=== PATIENT | male | born 1965 | race Caucasian/White ===

== ENCOUNTER 2020-03-21 10:16 | Outpatient (CLI) | payer BC, SELFPAY ==
--- NOTE | ~2020-03-21 | CT_ITS ---
EXAMINATION: CT cervical spine wo con DATE: 03/21/2020 11:17 INDICATION: Left neck pain. TECHNIQUE: Computed tomography (CT) of the cervical spine was performed without intravenous contrast. Automated exposure control and iterative reconstruction technique were employed. The dose-length pro duct was 385.93 mGy-cm. COMPARISON: None FINDINGS: There is mild emphysema. Bone alignment is normal. Vertebral body heights are normal. There are changes of posterior fusion procedure from C2 to T1 with lateral mass screws from C2-C6 and pedi moe screws in T1 and T2. There are bridging endplate osteophytes from C2 to T3. There is an old fract ure of C6 superior endplate anteriorly. Disc heights are normal. There are changes of laminectomies a t C5 and C6. The following disc levels are specifically discussed: C2-C3: There is no uncovertebral joint hypertrophy. There is no facet joint hypertrophy. There is no neural foraminal stenosis. There is no central canal stenosis. C3-C4: There is no uncovertebral joint hypertrophy. There is no facet joint hypertrophy. There is no neural foraminal stenosis. There is mild central canal stenosis. C4-C5 and C5-C6: There is no uncovertebral joint hypertrophy. There is no facet joint hypertrophy. Th ere is no neural foraminal stenosis. There is no central canal stenosis. C6-C7: There is no uncovertebral joint hypertrophy. There is no facet joint hypertrophy. There is mil d bilateral neural foraminal stenosis. There is no central canal stenosis. C7-T1: There is no uncovertebral joint hypertrophy. There is no facet joint hypertrophy. There is no neural foraminal stenosis. There is no central canal stenosis. IMPRESSION: 1. Posterior fusion procedure from C2 to T1. 2. Mild cervical spondylosis. 3. Old fracture of C6 superior endplate anteriorly. Reviewed, dictated and finalized at location A.
--- NOTE | ~2020-03-21 | XR_ITS ---
EXAMINATION: XR lg joint inject/aspiration DATE: 03/21/2020 11:56 INDICATION: Right hip pain TECHNIQUE: A time-out was performed to verify the patient's name, date of , and procedure to b e performed. The procedure including the risks, benefits, and alternatives was discussed with the pat ient. Risks discussed included bleeding and infection. The patient understood the risks and agreed to proceed. The skin overlying the right hip joint was prepped and draped in usual sterile fashion. A nesthetic was administered with 1% lidocaine subcutaneously. A 22 G needle was advanced under fluoro scopic guidance into the joint. Injection of 0.4 mL of Omnipaque 240 confirmed intra-articular posit ion of the needle. Subsequently, injectate consisting of 4.5 mm of a 2:1 mixture of 0.25% Marcaine a nd 10 mg/mL Kenalog for a total dosage of 50 mg Kenalog was instilled. Washout of contrast was seen c onfirming intra-articular administration. The needle was removed and the entry site was cleaned and d ressed. There were no immediate complications. Fluoroscopy exposure time was 0.1 minutes. The total number of images was 2. FINDINGS: Real-time fluoroscopy demonstrates the needle in the right hip joint. Patient's pain prior to procedure:06/14. Patient's pain following the procedure: 03/14. IMPRESSION: 1. Right hip injection of local anesthetic and steroid with decrease in the patient's presenting pain . Reviewed, dictated and finalized at location A. IMPRESSION: 1. Right hip injection of local anesthetic and steroid with decrease in the pat ient's presenting pain.
== END 2020-03-21 10:17 | disposition home or self-care (01) ==
PROVIDERS: Visit Provider Orthopaedic Surgery
DX: M25.551 Pain in right hip (principal); Z98.1 Arthrodesis status; M47.812 Spondylosis without myelopathy or radiculopathy, cervical region; Z87.81 Personal history of (healed) traumatic fracture
CPT/HCPCS: 20610; 72125; J3301